=== PATIENT | female | born 1960 | race Caucasian/White ===

== ENCOUNTER 2017-03-15 16:42 | Observation (INO) | payer BC ==
[2017-03-15] MEDS ORDERED: NS 500 ML IV ONE (16:49)
[2017-03-15] MEDS ORDERED: ASPIRIN 81 MG CHEWABLE TAB PO ONE (16:49)
--- NOTE | 2017-03-15 17:00 | CPEKG ---
Heart Rate: 64 RR Interval: 938 P-R Interval: 196 QRSD Interval: 76 QT Interval: 400 QTC Interval: 413 P [place]: 34 QRS [place]: 63 T Wave [place]: 40 EKG Severity - OTHERWISE NORMAL ECG - EKG Impression: SINUS RHYTHM EKG Impression: LOW VOLTAGE IN FRONTAL LEADS Electronically Signed By: Darius Cooper 15-Mar-2017 22:35:48
[2017-03-15 17:12] LABS: PLATELET COUNT 242 10^3/uL (150-400)
[2017-03-15 17:32] LABS: INR 0.91 (0.83-1.16); PROTIME(PATIENT) 12.2 SEC (12.0-15.0)
[2017-03-15 17:34] LABS: CREATINE KINASE 30 IU/L (0-156)
--- NOTE | 2017-03-15 17:42 | EDPHY ---
H & P Time Seen by Provider: 03/15/17 16:48 HPI/ROS: HPI Chest pain. 56-year-old female by private vehicle. This patient reports that she has had dull, mid substernal chest aching and squeezing sensation since about 2:00 p.m. yesterday afternoon. She reports that the pain has been on and off but worse today and this is what prompted her to come to the emergency department. She reports that she has had this sensation to a lesser degree a couple of times in the past. She has seen her primary care physician for it but has never had a formal workup or seen a machine package sealer. She was told by her primary care physician to come to the emergency department this time. She does not smoke. No history of diabetes, hyperlipidemia, hypertension. No family history of coronary artery disease. ROS: Constitutional: No fever, no chills. No weakness. Eyes: No discharge. No changes in vision. ENT: No sore throat. No nasal congestion or rhinorrhea. Respiratory: No cough. No shortness of breath. Cardiac: As above, no palpitations. Gastrointestinal: No abdominal pain, no vomiting, no diarrhea. Genitourinary: No hematuria. No dysuria or increased frequency with urination. Musculoskeletal: No back pain. No neck pain. No myalgias or arthralgias. Skin: No rashes. Neurological: Mild gradual onset headache headache. No focal weakness or altered sensation. Past medical history: No significant past medical history. She takes no prescription medications. Social history: Nonsmoker. Drinks alcohol socially. . Has a special needs child. Physical Exam: General Appearance: Alert, no distress. This patient is responding to questions appropriately and in full sentences. This patient appears well- hydrated and well-nourished. Eyes: Pupils equal and round no pallor or injection. No lid edema, erythema or injection. Respiratory: There are no retractions, lungs are clear to auscultation with good air movement bilaterally. Cardiovascular: Regular rate and rhythm. No murmur. Gastrointestinal: Abdomen is soft and nontender, no masses, bowel sounds normal. No focal tenderness at McBurney's point. No Perez sign. Neurological: Motor sensory function is grossly intact. Cranial nerves are normal. Gait is normal. Skin: Warm and dry, no rashes. Musculoskeletal: Neck is supple and nontender. Extremities are symmetrical. All joints range without pain or impingement. Psychiatric: No agitation. No depression. Database: EKG: EKG time is 4:58 p.m.; EKG shows a narrow complex normal sinus rhythm with a ventricular rate of 64. Low voltage noted in the frontal leads. This EKG is otherwise unremarkable. The AR, QRS, QT intervals are within normal limits. There are no ST-T wave changes indicative of ischemic or injury pattern. No evidence of right heart strain. Interpreted by me. Imaging: Chest x-ray PA AP portable; the cardiac mediastinal silhouette is unremarkable. No evidence of infiltrate or pneumothorax. No acute cardiopulmonary disease process noted. Interpreted by me. Procedures: Emergency department course: IV placed. She was placed on a airfield engineer officer. Vital signs reviewed. She was given 324 mg of chewed aspirin. EKG obtained and reviewed by myself. 5:45 p.m., patient re-evaluated. Resting comfortably at this time. She does not have chest pain or discomfort currently. Results of her diagnostic testing discussed with her. I discussed admission to our hospitalist service for further evaluation and observation overnight. She endorses. Hospitalist paged. 6:00 p.m., spoke with on-call hospitalist Dr. Vieira. She accepts the patient for observation admission to the PCU. Patient's remaining emergency department course under my care has been uneventful. Her will take her to the hospital. I feel this is reasonable. Wrist of private vehicle transport discussed with the 2 of them. All of their questions were answered. The patient was transferred in stable condition. Differential Diagnosis: The differential diagnosis on this patient includes but is not limited to acute coronary syndrome, anxiety reaction, esophageal spasm, pleurisy. Pulmonary embolism, aortic dissection unlikely. This represents a partial list of diagnoses considered. These considerations are based on history, physical exam , past history, reassessment and diagnostic testing. Smoking Status: Never smoked Constitutional: Initial Vital Signs Temperature (C) 36.6 C 03/15/17 16:48 Heart Rate 72 03/15/17 16:48 Respiratory Rate 16 03/15/17 16:48 Blood Pressure 110/53 L 03/15/17 16:48 O2 Sat (%) 97 03/15/17 16:48 O2 Delivery Mode Room Air Allergies/Adverse Reactions: codeine Allergy (Verified 03/15/17 17:04) Pt reports vomiting, fainting narcotics Allergy (Uncoded 03/15/17 17:04) Pt reports vomiting, hallucinations Home Medications: Medication Instructions Recorded Multivitamins [Multivitamin (*)] 12/30/13 [place]-3 Fatty Acids [Fish Oil 1000 12/30/13 mg (*)] Medical Decision Making - Diagnostics Imaging Results: Imaging Impressions Chest X-Ray 03/15/17 16:49 Impression: 1. No source for chest pain identified. - Data Points Laboratory Results: Laboratory Results 03/15/17 17:05 03/15/17 17:05 03/15/17 03/15/17 03/15/17 17:05 17:05 17:05 WBC 4.73 10^3/uL 10^3/uL (3.80-9.50) RBC 4.57 10^6/uL 10^6/uL (4.18-5.33) Hgb 14.0 g/dL g/dL (12.6-16.3) Hct 40.5 % % (38.0-47.0) MCV 88.6 fL fL (81.5-99.8) MCH 30.6 pg pg (27.9-34.1) MCHC 34.6 g/dL g/dL (32.4-36.7) RDW 12.5 % % (11.5-15.2) Plt Count 242 10^3/uL 10^3/uL (150-400) MPV 9.3 fL fL (8.7-11.7) Neut % (Auto) 46.8 % % (39.3-74.2) Lymph % (Auto) 42.9 % % (15.0-45.0) Geary % (Auto) 6.3 % % (4.5-13.0) Eos % (Auto) 2.5 % % (0.6-7.6) Baso % (Auto) 1.3 % % (0.3-1.7) Nucleat RBC Rel Count 0.0 % % (0.0-0.2) Absolute Neuts (auto) 2.21 10^3/uL 10^3/uL (1.70-6.50) Absolute Lymphs (auto) 2.03 10^3/uL 10^3/uL (1.00-3.00) Absolute Monos (auto) 0.30 10^3/uL 10^3/uL (0.30-0.80) Absolute Eos (auto) 0.12 10^3/uL 10^3/uL (0.03-0.40) Absolute Basos (auto) 0.06 10^3/uL 10^3/uL (0.02-0.10) Absolute Nucleated RBC 0.00 10^3/uL 10^3/uL (0-0.01) Immature Gran % 0.2 % % (0.0-1.1) Immature Gran # 0.01 10^3/uL 10^3/uL (0.00-0.10) PT 12.2 SEC SEC (12.0-15.0) INR 0.91 (0.83-1.16) APTT 38.3 SEC H SEC (23.0-38.0) Sodium 142 mEq/L mEq/L (135-145) Potassium 3.8 mEq/L mEq/L (3.5-5.2) Chloride 104 mEq/L mEq/L (97-110) Carbon Dioxide 26 mEq/l mEq/l (22-31) Anion Gap 12 mEq/L mEq/L (8-16) BUN 12 mg/dL mg/dL (7-23) Creatinine 0.7 mg/dL mg/dL (0.6-1.0) Estimated GFR > 60 Glucose 78 mg/dL mg/dL (70-100) Calcium 9.6 mg/dL mg/dL (8.5-10.4) Creatine Kinase 30 IU/L IU/L (0-156) CK-MB (CK-2) Fraction 0.55 ng/mL ng/mL (0.00-4.55) Troponin I < 0.012 ng/mL ng/mL (0.000-0.034) Medications Given: Discontinued Medications Aspirin (Aspirin) 324 mg PO EDNOW ONE Stop: 03/15/17 16:50 Last Admin: 03/15/17 16:59 Dose: 324 mg Sodium Chloride (Ns) 500 mls @ 1,000 mls/hr IV EDNOW ONE PRN Reason: Protocol Stop: 03/15/17 17:18 Last Admin: 03/15/17 17:12 Dose: 500 mls Departure - Departure Disposition: [facility] Acute Clinical Impression: Chest pain
[2017-03-15] MEDS ORDERED: ONDANSETRON DISINTEGRATING 4 MG TAB PO PRN (20:10)
[2017-03-15] MEDS ORDERED: ACETAMINOPHEN 325 MG TAB PO PRN (20:10)
[2017-03-15] MEDS ORDERED: ONDANSETRON 4 MG/2 ML VIAL IVP PRN (20:10)
--- NOTE | 2017-03-15 20:18 | PDGENHP ---
History and Physical - Chief Complaint chest pain - History of Present Illness 56 female presents to ED with chest heaviness, "twingy at times". Pain started yesterday late in the afternoon, she was seated in her office when it started. Pain has been persistent. Feels better to take a deep breath. Denies associated SOB, nausea, or diaphoresis. She does endorse radiation into her left ribcage, which sometimes feels sore, but not at this time. She says it feels kind of like heartburn. She describes burping more. Endorses a little burning and thinks it's worse when she lies supine. At this time, pain is 1/10. No h/o hypertension, hyperlipidemia, DM, tobacco abuse or family h/o PHD. She has no cardiac risk factors. History Information - Allergies/Home Medication List Allergies/Adverse Reactions: codeine Allergy (Verified 03/15/17 17:04) Pt reports vomiting, fainting narcotics Allergy (Uncoded 03/15/17 17:04) Pt reports vomiting, hallucinations Home Medications: Multivitamins [Multivitamin (*)] 12/30/13 [Last Taken 01/06/14] [place]-3 Fatty Acids [Fish Oil 1000 mg (*)] 12/30/13 [Last Taken 01/06/14] I have personally reviewed and updated: family history, medical history, social history, surgical history - Past Medical History arthritis Additional medical history: headache - Surgical History Reports: hysterectomy - Family History Additional family history: no family h/o PHD - Social History Smoking Status: Never smoked Alcohol Use: Rarely Drug Use: None Additional social history: Lives independently. 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 Review of Systems Review of Systems: ROS: 10pt was reviewed & negative except for what was stated in HPI & below Physical Exam Physical Exam: Temp Pulse Resp BP Pulse Ox 36.7 C 63 16 112/69 97 03/15/17 19:25 03/15/17 19:25 03/15/17 19:25 03/15/17 19:25 03/15/17 19:25 Constitutional: no apparent distress Eyes: PERRL Ears, Nose, Mouth, Throat: moist mucous membranes Cardiovascular: regular rate and rhythym, no murmur, rub, or gallop Respiratory: no respiratory distress, clear to auscultation Gastrointestinal: normoactive bowel sounds, soft, non-tender abdomen Skin: warm Musculoskeletal: full muscle strength Neurologic: AAOx3 Psychiatric: interacting appropriately Lab Data & Imaging Review 03/15/17 17:05 03/15/17 17:05 WBC 4.73 10^3/uL (3.80-9.50) 03/15/17 17:05 RBC 4.57 10^6/uL (4.18-5.33) 03/15/17 17:05 Hgb 14.0 g/dL (12.6-16.3) 03/15/17 17:05 Hct 40.5 % (38.0-47.0) 03/15/17 17:05 MCV 88.6 fL (81.5-99.8) 03/15/17 17:05 MCH 30.6 pg (27.9-34.1) 03/15/17 17:05 MCHC 34.6 g/dL (32.4-36.7) 03/15/17 17:05 RDW 12.5 % (11.5-15.2) 03/15/17 17:05 Plt Count 242 10^3/uL (150-400) 03/15/17 17:05 MPV 9.3 fL (8.7-11.7) 03/15/17 17:05 Neut % (Auto) 46.8 % (39.3-74.2) 03/15/17 17:05 Lymph % (Auto) 42.9 % (15.0-45.0) 03/15/17 17:05 Yell % (Auto) 6.3 % (4.5-13.0) 03/15/17 17:05 Eos % (Auto) 2.5 % (0.6-7.6) 03/15/17 17:05 Baso % (Auto) 1.3 % (0.3-1.7) 03/15/17 17:05 Nucleat RBC Rel Count 0.0 % (0.0-0.2) 03/15/17 17:05 Absolute Neuts (auto) 2.21 10^3/uL (1.70-6.50) 03/15/17 17:05 Absolute Lymphs (auto) 2.03 10^3/uL (1.00-3.00) 03/15/17 17:05 Absolute Monos (auto) 0.30 10^3/uL (0.30-0.80) 03/15/17 17:05 Absolute Eos (auto) 0.12 10^3/uL (0.03-0.40) 03/15/17 17:05 Absolute Basos (auto) 0.06 10^3/uL (0.02-0.10) 03/15/17 17:05 Absolute Nucleated RBC 0.00 10^3/uL (0-0.01) 03/15/17 17:05 Immature Gran % 0.2 % (0.0-1.1) 03/15/17 17:05 Immature Gran # 0.01 10^3/uL (0.00-0.10) 03/15/17 17:05 PT 12.2 SEC (12.0-15.0) 03/15/17 17:05 INR 0.91 (0.83-1.16) 03/15/17 17:05 APTT 38.3 SEC (23.0-38.0) H 03/15/17 17:05 Sodium 142 mEq/L (135-145) 03/15/17 17:05 Potassium 3.8 mEq/L (3.5-5.2) 03/15/17 17:05 Chloride 104 mEq/L (97-110) 03/15/17 17:05 Carbon Dioxide 26 mEq/l (22-31) 03/15/17 17:05 Anion Gap 12 mEq/L (8-16) 03/15/17 17:05 BUN 12 mg/dL (7-23) 03/15/17 17:05 Creatinine 0.7 mg/dL (0.6-1.0) 03/15/17 17:05 Estimated GFR > 60 03/15/17 17:05 Glucose 78 mg/dL (70-100) 03/15/17 17:05 Calcium 9.6 mg/dL (8.5-10.4) 03/15/17 17:05 Creatine Kinase 30 IU/L (0-156) 03/15/17 17:05 CK-MB (CK-2) Fraction 0.55 ng/mL (0.00-4.55) 03/15/17 17:05 Troponin I < 0.012 ng/mL (0.000-0.034) 03/15/17 17:05 Visualized and Interpreted Chest x-ray results: Yes Chest X-Ray results: no infiltrate Visualized and Interpreted EKG results: Yes EKG Interpretation: Positive for: normal sinsus rhythm Assessment & Plan Assessment: Chest pain (Acute) - Heart score 1, low risk. No cardiac risk factors. Her pain does not sound suspicious for a cardiac etiology. Query GI or MSK origin. -trend trop -trial GI cocktail if CP recurs -given low risk, she can do outpt risk stratification Full code Dispo - obs
[2017-03-15] MEDS ORDERED: HYOSCYAMINE SULFATE 0.125 MG TAB PO PRN (20:25)
[2017-03-15] MEDS ORDERED: MAG HYDROX/AL HYDROX/SIMETH 30 ML UDCUP PO PRN (20:25)
[2017-03-15] MEDS ORDERED: LIDOCAINE 2% VISCOUS 15 ML UDCUP PO PRN (20:25)
[2017-03-15] MEDS ORDERED: MELATONIN 3 MG TAB PO SCH (21:00)
[2017-03-16 03:59] VITALS: O2SAT 94
--- NOTE | 2017-03-16 06:20 | CPEKG ---
Heart Rate: 56 RR Interval: 1071 P-R Interval: 212 QRSD Interval: 70 QT Interval: 412 QTC Interval: 398 P [place]: 19 QRS [place]: 81 T Wave [place]: 33 EKG Severity - ABNORMAL ECG - EKG Impression: SINUS RHYTHM EKG Impression: ATRIAL PREMATURE COMPLEX EKG Impression: FIRST DEGREE AV BLOCK EKG Impression: LOW VOLTAGE Electronically Signed By: Champ Alba 16-Mar-2017 10:29:25
[2017-03-16 08:14] VITALS: RESP 15; TEMP 97.4
[2017-03-16 10:08] VITALS: BP 99/60; PULSE 73
--- NOTE | 2017-03-16 12:10 | ASDISCHSUM ---
Discharge Information Plan Status:Home with No Needs Medically Cleared to Leave:03/15/2017 Discharge Date:03/16/2017 11:20 AM CM D/C Disposition:Home, Routine, Self-Care ADT D/C Disposition:Home, Routine, Self-Care Projected Discharge Date:03/16/2017 11:20 AM Transportation at D/C: Discharge Delay Reason: Follow-Up Date:03/16/2017 11:20 AM Discharge Slot: Final Diagnosis: Placement Information Patient Contact Information Contact Name:AWA Relationship: Address:[address] [place] [address] City:[place] Alternate Phone: State/Zip Code:[place] [address] Email: Financial Information Financial Class:HMO and PPO Plans Primary Plan Desc: OUT OF STATE PPO Primary Plan Number:[id number] Secondary Plan Desc: Secondary Plan Number: Assessment Information Intervention Information
--- NOTE | 2017-03-16 13:19 | PDDCSUM ---
Discharge Summary Discharge Summary: 56 yo female admitted with intermittent cp x several weeks. she has no risk factors. CP resolved as she did not have further cp. her CP is not exertional. 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
== END 2017-03-16 11:20 | disposition home or self-care (01) ==
LOC: CED 16:42 → CEDHOLD 18:10 → F2W 19:16
PROVIDERS: ADMIT Hospitalist; ATTEND Hospitalist
DX: R07.89 Other chest pain (principal)
CPT/HCPCS: 71045; 93005; G0378; 80048-PO; 82550-PO; 82553-PO; 84484-PO; 85025-PO; 85610-PO; 85730-PO